=== PATIENT | female | born 1940 | race Caucasian/White ===

== ENCOUNTER → 2018-09-26 | Outpatient (CLI) | payer MEDICARE, OTHER ==
[2018-09-12 07:40] VITALS: BP_SYST 129
[2018-09-19 07:33] VITALS: BP_DIAS 63
[~2018-09-26] MED LIST: ALPR0.25 PO; CALC0.25 PO; CLIN75SO12 PO; ESOM40CA PO; FERR325T14 PO; FURO-68 PO; HYOS0.1279 PO; LOPE1TAB PO; ONDA8TAB12 PO; PRED1TAB3 PO; RANI-376 PO; SODI650T PO; SOLI10TA2 PO; SOTA80TA48 PO; TRIA15CR TP; [UNRECOGNIZED DRUG - CODE] MC; hyomax
--- NOTE | 2018-09-26 11:23 | CARD ---
MR#: [id number] Date of Study: 09/26/2018 Ordering Physician: LAURIE PANDA, Referring Physician: LAURIE PANDA, Tech: Brenda Lopez ATIYA APPROVED REPORT EXAM: Two-dimensional and M-mode echocardiogram with Doppler and color Doppler. Other Information Quality : Good INDICATION Atrial Fibrillation 2D DIMENSIONS RVDd2.4 (2.9-3.5cm)Left Atrium(2D)3.1 (1.6-4.0cm) IVSd0.8 (0.7-1.1cm)Aortic Root(2D)2.6 (2.0-3.7cm) LVDd4.1 (3.9-5.9cm)LVOT Diameter2.0 (1.8-2.4cm) PWd0.7 (0.7-1.1cm)LVDs2.2 (2.5-4.0cm) FS (%) 30.0 %SV57.9 ml LVEF(%)60.0 (>50%) Aortic Valve AoV Peak Jethro.158.9cm/sAoV VTI42.4cm AO Peak GR.10.1mmHgLVOT Peak Jethro.82.5cm/s LVOT VTI 26.28cmAO Mean GR.5mmHg SIMONE (VMAX)1.82rg1RDQ (VTI)1.94cm2 AI P 1/2 Ulam782yq Mitral Valve MV E Lddiaodw873.9cm/sMV DECEL CCBF164nk MV A Jazsucia237.6cm/sMV SIP52ja E/A Ratio0.9MVA (PHT)5.09cm2 TDI E/Lateral E'12.3E/Medial E'19.6 Tricuspid Valve TR P. Koubzret522yc/sRAP IWIBGYOH0isCc TR Peak Gr.27xyQjOTAR87gnJd Pulmonary Vein S1 Uqkyrxjd68.3cm/sD2 Urefokjx89.9cm/s LEFT VENTRICLE The left ventricle is normal size. There is normal left ventricular wall thickness. The left ventricu lar systolic function is normal. The Ejection Fraction is 55-60%. There is normal LV segmental wall m otion. Transmitral Doppler flow pattern is Grade I-abnormal relaxation pattern. RIGHT VENTRICLE The right ventricle is normal size. The right ventricular systolic function is normal. ATRIA The left atrium size is normal. The right atrium size is normal. The interatrial septum is intact wit h no evidence for an atrial septal defect or patent foramen ovale as noted on 2-D or Doppler imaging. AORTIC VALVE The aortic valve is calcified but opens well. Doppler and Color Flow revealed mild aortic regurgitati on. There is no significant aortic valvular stenosis. MITRAL VALVE The mitral valve is calcified but opens well. There is no evidence of mitral valve prolapse. There is no mitral valve stenosis. Doppler and Color-flow revealed mild mitral regurgitation. TRICUSPID VALVE The tricuspid valve is normal in structure and function. Doppler and Color Flow revealed mild tricusp id regurgitation. There is mild pulmonary hypertension. The PA pressure was estimated at 32 mmHg. The re is no tricuspid valve stenosis. PULMONIC VALVE The pulmonic valve is not well visualized. Doppler and Color Flow revealed trace pulmonic valvular re gurgitation. There is no pulmonic valvular stenosis. GREAT VESSELS The aortic root is normal in size. The ascending aorta is not well seen. The IVC is normal in size an d collapses >50% with inspiration. PERICARDIAL EFFUSION There is no evidence of significant pericardial effusion. Critical Notification Critical Value: No <Conclusion> The left ventricular systolic function is normal. The Ejection Fraction is 55-60%. There is normal LV segmental wall motion. Transmitral Doppler flow pattern is Grade I-abnormal relaxation pattern. Mild aortic regurgitation. Mild mitral regurgitation. Mild tricuspid regurgitation. The PA pressure was estimated at 32 mmHg. There is no evidence of significant pericardial effusion. Signed by : Ravi Izaguirre, Electronically Approved : 09/26/2018 11:23:14
== END | disposition home or self-care (01) ==
LOC: ECHO 07:20
PROVIDERS: ATTEND Internal Medicine Cardiovascular Disease
DX: I08.3 Combined rheumatic disorders of mitral, aortic and tricuspid valves (principal); I27.20 Pulmonary hypertension, unspecified; I47.1 Supraventricular tachycardia; I48.91 Unspecified atrial fibrillation
CPT/HCPCS: 93306

== ENCOUNTER → 2018-10-11 | Outpatient (CLI) | payer MEDICARE, OTHER ==
[2018-10-10 07:18] VITALS: BP 133/61
--- NOTE | 2018-10-11 18:26 | CARD ---
MR#: [id number] Date of Study: 10/11/2018 Ordering Physician: LAURIE PANDA, Referring Physician: LAURIE PANDA, Tech: APPROVED REPORT Procedure: Implantable loop recorder Indications: Patient with severe allergies to EKG lead tape and with significant PVCs and PACs with b radycardia. After appropriate informed consent the patient was brought to the office procedure suite and the [facility] t was prepped and draped in usual sterile condition. After local anesthesia over the left parasternal space with approximately 30 mL of 2% lidocaine a sma ll stab incision was made through which the loaded implantable loop recorder in the delivery device w as placed in the subcutaneous compartment. There were no acute competitions. The patient did have an episode of vagal response with severe bradycardia but maintain her blood pressure throughout the cour se. Excellent amplitudes were obtained from the device. Serial number for the implantable loop recorder is [id number], [facility] confirm Rx. The patient's blood pressure and heart rate stabilized. The incision was then dressed with Steri-Stri ps. <Conclusion> 1. Successful implantation of a loop recorder for further evaluation of tachybradycardia issues. Signed by : Laurie Panda, Electronically Approved : 10/11/2018 18:25:36
== END ==
LOC: LINQ 10:05
PROVIDERS: ATTEND Internal Medicine Cardiovascular Disease
DX: Z45.09 Encounter for adjustment and management of other cardiac device (principal); R00.1 Bradycardia, unspecified
CPT/HCPCS: 33285; C1764

== ENCOUNTER 2018-10-31 10:00 | Inpatient (IN) | payer MEDICARE, OTHER ==
[~2018-10-31] VITALS: Ht 157.5 cm; Wt 57.9 kg
[~2018-10-31 10:00] MED LIST changes: +ALPRAZolam 0.25 MG TABLET PO PRN
--- NOTE | 2018-10-31 10:17 | PHYS DOC ---
Past Medical History Past Medical History: Anxiety, Arrhythmia, Cancer, Hypertension, Other Additional Past Medical Histor: HAY FEVER, PANCREATIC CA, DIARRHEA, POLYCYSITIC KIDNEYS Past Surgical History: Appendectomy, Cholecystectomy, Tonsillectomy, Other Additional Past Surgical Histo: ADNOIDS, WIPPLE, PORT TO L CHEST, ENDOLMPHATIC MASTOID SHUNT L EAR Alcohol Use: None Drug Use: None Adult General Chief Complaint Chief Complaint: CHEST PAIN HPI HPI Patient is a 78 year old female presents to the ER with chest pain that started at 2 AM this morning that is midsternal in location but radiates all the way behind her left shoulder. The patient also has been having nausea. She states the pain is intermittent in nature. On assessment the patient was not having any pain and rated her pain as 0 out of 10 in severity. The patient was at an outpatient department receiving fluids due to her kidney disease and they brought her to the ER. Review of Systems Review of Systems Constitutional: Denies fever or chills [] Eyes: Denies change in visual acuity, redness, or eye pain [] HENT: Denies nasal congestion or sore throat [] Respiratory: Denies cough or shortness of breath [] Cardiovascular: Reports midsternal chest pain that radiates to the left shoulder. GI: Reports nausea, Denies abdominal pain, vomiting, bloody stools or diarrhea [] : Denies dysuria or hematuria [] Musculoskeletal: Denies back pain or joint pain [] Integument: Denies rash or skin lesions [] Neurologic: Denies headache, focal weakness or sensory changes [] Endocrine: Denies polyuria or polydipsia [] Complete systems were reviewed and found to be within normal limits, except as documented in this note. Current Medications Current Medications Current Medications Medications (Trade) Dose Ordered Sig/Pepe Start Time Stop Time Status Last Admin Dose Admin Acetaminophen (Tylenol) 650 mg PRN Q4HRS PRN 10/31/18 13:00 11/01/18 12:59 Morphine Sulfate (Morphine Sulfate) 2 mg PRN Q2HR PRN 10/31/18 13:00 11/01/18 12:59 Ondansetron HCl (Zofran) 4 mg PRN Q8HRS PRN 10/31/18 13:00 11/01/18 12:59 Allergies Allergies Allergies Coded Allergies Type Severity Reaction Last Updated Verified amiodarone Allergy Severe SOA, nausea, headache tremors,weakness 10/31/18 Yes amoxicillin Allergy Severe Hives 10/31/18 Yes benzocaine Allergy Severe Shortness of Air 10/31/18 Yes adhesive Allergy Intermediate Rash 10/31/18 Yes hydromorphone Allergy Intermediate Rash 10/31/18 Yes Propafenone HCl Adverse Reaction Intermediate nausea, irregular heartbeat 10/31/18 Yes azithromycin Adverse Reaction Intermediate 10/31/18 Yes codeine Adverse Reaction Intermediate Nausea and Vomiting 10/31/18 Yes nitroglycerin Adverse Reaction Intermediate Nausea and Vomiting 10/31/18 Yes Physical Exam Physical Exam Constitutional: Well developed, well nourished, no acute distress, non-toxic appearance. [] HENT: Normocephalic, atraumatic, bilateral external ears normal, oropharynx moist, no oral exudates, nose normal. [] Eyes: PERRLA, EOMI, conjunctiva normal, no discharge. [] Neck: Normal range of motion, no tenderness, supple, no stridor. [] Cardiovascular:Heart rate regular rhythm, no murmur [] Lungs & Thorax: Bilateral breath sounds clear to auscultation [] Abdomen: Bowel sounds normal, soft, no tenderness, no masses, no pulsatile masses. [] Skin: Warm, dry, no erythema, no rash. [] Back: No tenderness, no CVA tenderness. [] Extremities: No tenderness, no cyanosis, no clubbing, ROM intact, no edema. [] Neurologic: Alert and oriented X 3, normal motor function, normal sensory fu nction, no focal deficits noted. [] Psychologic: Affect normal, judgement normal, mood normal. [] Current Patient Data Vital Signs Vital Signs Date Time Temp Pulse Resp B/P (MAP) Pulse Ox O2 Delivery O2 Flow Rate FiO2 10/31/18 11:37 52 18 182/79 (113) 99 Room Air 10/31/18 10:06 98.4 98.4 Lab Values Laboratory Tests Test 10/31/18 10:34 White Blood Count 3.9 x10^3/uL (4.0-11.0) L Red Blood Count 3.61 x10^6/uL (3.50-5.40) Hemoglobin 12.1 g/dL (12.0-15.5) Hematocrit 36.2 % (36.0-47.0) Mean Corpuscular Volume 100 fL (79-100) Mean Corpuscular Hemoglobin 33 pg (25-35) Mean Corpuscular Hemoglobin Concent 33 g/dL (31-37) Red Cell Distribution Width 13.6 % (11.5-14.5) Platelet Count 121 x10^3/uL (140-400) L Neutrophils (%) (Auto) 56 % (31-73) Lymphocytes (%) (Auto) 33 % (24-48) Monocytes (%) (Auto) 6 % (0-9) Eosinophils (%) (Auto) 4 % (0-3) H Basophils (%) (Auto) 1 % (0-3) Neutrophils # (Auto) 2.2 x10^3/uL (1.8-7.7) Lymphocytes # (Auto) 1.3 x10^3/uL (1.0-4.8) Monocytes # (Auto) 0.2 x10^3/uL (0.0-1.1) Eosinophils # (Auto) 0.2 x10^3/uL (0.0-0.7) Basophils # (Auto) 0.0 x10^3/uL (0.0-0.2) Sodium Level 142 mmol/L (136-145) Potassium Level 4.4 mmol/L (3.5-5.1) Chloride Level 111 mmol/L (98-107) H Carbon Dioxide Level 25 mmol/L (21-32) Anion Gap 6 (6-14) Blood Urea Nitrogen 14 mg/dL (7-20) Creatinine 0.9 mg/dL (0.6-1.0) Estimated GFR (Cockcroft-Gault) 60.9 BUN/Creatinine Ratio 16 (6-20) Glucose Level 101 mg/dL (70-99) H Calcium Level 8.3 mg/dL (8.5-10.1) L Total Bilirubin 0.4 mg/dL (0.2-1.0) Aspartate Amino Transferase (AST) 103 U/L (15-37) H Alanine Aminotransferase (ALT) 131 U/L (14-59) H Alkaline Phosphatase 128 U/L (46-116) H Troponin I Quantitative < 0.017 ng/mL (0.000-0.055) Total Protein 5.3 g/dL (6.4-8.2) L Albumin 2.8 g/dL (3.4-5.0) L Albumin/Globulin Ratio 1.1 (1.0-1.7) Laboratory Tests 10/31/18 10:34 Laboratory Tests 10/31/18 10:34 EKG EKG EKG interpreted by Dr. Gaines Sinus bradycardia, No STEMI, has ekg changes compared to the last EKG in 2016 of T-wave inversion in the lateral leads. Radiology/Procedures Radiology/Procedures [][facility] [address] [place] [address] IMAGING REPORT Signed PATIENT: AMALIA CANALES VACCOUNT: [id number] : 1940 LOCATION: ER AGE: 78 SEX: F EXAM STATUS: REG ER ORD. PHYSICIAN: LEONCIO HIGHTOWER APRN REASON: chest pain PROCEDURE: CHEST PA & LATERAL Study: CHEST PA LATERAL Indication: Chest pain. Comparison: 11/26/2015 Findings: Left chest wall Port-A-Cath with the tip seen in the expected location of the superior vena cava. Unchanged configuration of the cardiomediastinal silhouette and hilar structures. No lobar infiltrate or pneumothorax. Small bilateral pleural effusions. Aortic arch vessel calcifications. Right upper quadrant surgical clips. Loop recorder. Impression: Very small bilateral pleural effusions. No lobar infiltrate or pneumothorax. Electronically signed by: MYLA GONZALEZ MD (10/31/2018 11:07 AM) [facility] DICTATED and SIGNED BY: MYLA GONZALEZ MD DATE: 10/31/18 110 Course & Med Decision Making Course & Med Decision Making Pertinent Labs and Imaging studies reviewed. (See chart for details) Will get ekg, labs, and chest x-ray. Labs are unremarkable. However history is concerning with have Dr. Fuller admit. Discussed with Dr. Fuller who will admit to hospital. Dragon Disclaimer Dragon Disclaimer This electronic medical record was generated, in whole or in part, using a voice recognition dictation system. Departure Departure Referrals: HARMEET FULLER MD (PCP) The HEART Score for CP Pts HEART Score for Chest Pain: HEART Score for Chest Pain Response (Comments) Value History Highly Suspicious 2 ECG Nonspecific Repolarizatio 1 Age > 65 2 Risk Factors 1 or 2 Risk Factors 1 Troponin < Normal Limit 0 Total 6 Risk Factors: Risk Factors: DM, Current or recent (<one month) smoker, HTN, HLP, family history of CAD, obesity. Risk Scores: Score 0 - 3: 2.5% MACE over next 6 weeks - Discharge Home Score 4 - 6: 20.3% MACE over next 6 weeks - Admit for Clinical Observation Score 7 - 10: 72.7% MACE over next 6 weeks - Early Invasive Strategies LEONCIO HIGHTOWER APRN Oct 31, 2018 10:17
[2018-10-31 10:54] LABS: CALCIUM 8.3 mg/dL (8.5-10.1); CREATININE 0.9 mg/dL (0.6-1.0); GFR 60.9; POTASSIUM 4.4 mmol/L (3.5-5.1)
[2018-10-31 10:59] LABS: ALBUMIN 2.8 g/dL (3.4-5.0); ALBUMIN/GLOBULIN RATIO 1.1 (1.0-1.7); TOTAL BILIRUBIN 0.4 mg/dL (0.2-1.0); TOTAL PROTEIN 5.3 g/dL (6.4-8.2)
[2018-10-31 11:09] LABS: BASO % 1 % (0-3); EOS # 0.2 x10^3/uL (0.0-0.7); EOS % 4 % (0-3); HEMATOCRIT 36.2 % (36.0-47.0); HEMOGLOBIN 12.1 g/dL (12.0-15.5); LYMPH # 1.3 x10^3/uL (1.0-4.8); LYMPH % 33 % (24-48); MEAN CORPUSCULAR HEMOGLOBIN 33 pg (25-35); MEAN CORPUSCULAR HGB CONC 33 g/dL (31-37); MEAN CORPUSCULAR VOLUME 100 fL (79-100); MONO # 0.2 x10^3/uL (0.0-1.1); MONO % 6 % (0-9); NEUT # 2.2 x10^3/uL (1.8-7.7); NEUT % 56 % (31-73); PLATELET COUNT 121 x10^3/uL (140-400); RED BLOOD COUNT 3.61 x10^6/uL (3.50-5.40); RED CELL DISTRIBUTION WIDTH 13.6 % (11.5-14.5); WHITE BLOOD COUNT 3.9 x10^3/uL (4.0-11.0)
--- NOTE | 2018-10-31 11:10 | RAD ---
Study: CHEST PA LATERAL Indication: Chest pain. Comparison: 11/26/2015 Findings: Left chest wall Port-A-Cath with the tip seen in the expected location of the superior vena cava. Unchanged configuration of the cardiomediastinal silhouette and hilar structures. No lobar infiltrate or pneumothorax. Small bilateral pleural effusions. Aortic arch vessel calcifications. Right upper quadrant surgical clips. Loop recorder. Impression: Very small bilateral pleural effusions. No lobar infiltrate or pneumothorax. Electronically signed by: MYLA GONZALEZ MD (10/31/2018 11:07 AM) [facility]
[2018-10-31] MEDS ORDERED: ACETAMINOPHEN 325 MG TABLET. PO PRN (13:00)
[2018-10-31] MEDS ORDERED: ONDANSETRON PF 4 MG/2 ML VIAL. IV PRN (13:00)
--- NOTE | 2018-10-31 14:17 | EKG ---
[facility] [address] [place] [address] Test Date: 2018-10-31 Test Time: 10:13:55 Pat Name: AMALIA CANALES Department: Room: ED HOLD 21 Gender: F [place] Shearer Operator: : 1940 Requested By: LEONCIO HIGHTOWER Order Number: [id number] Reading MD: Shahab Daniel Measurements Intervals [place] Rate: 47 P: CT: QRS: -27 QRSD: 72 T: 149 QT: 516 QTc: 460 Interpretive Statements SINUS RHYTHM NONSPECIFIC ST-T WAVE CHANGES. Electronically Signed On 11-04-2018 9:55:22 CDT by Shahab Daniel
[2018-10-31 16:00] VITALS: BP 182/79
[2018-10-31] MEDS ORDERED: AMLO2.5T2 PO (16:14)
--- NOTE | 2018-10-31 16:25 | NUR ---
The patient, AMALIA CANALES V, 78 y/o, F admitted by HARMEET FULLER MD, was given written information regarding hospital policies, unit procedures and contact persons. Valuables were checked.
[2018-10-31] MEDS ORDERED: LOPERAMIDE 2 MG CAPSULE PO PRN (18:45)
[2018-10-31] MEDS ORDERED: MORPHINE SULFATE MC SCH (18:45)
[2018-10-31] MEDS: MORPHINE SULFATE 2 MG/ML VIAL. IV PRN ×2 (19:15→23:18)
[2018-10-31 19:50] VITALS: BP 163/71
[2018-10-31] MEDS: SOTALOL 80 MG TABLET. PO SCH (20:48)
[2018-10-31] MEDS: FERROUS SULFATE 325 MG TABLET. PO SCH (20:48)
[2018-10-31] MEDS: SODIUM BICARBONATE 650 MG TABLET. PO SCH (20:48)
[2018-10-31] MEDS ORDERED: FAMOTIDINE 20 MG TABLET. PO PRN (21:00)
[2018-10-31 22:55] VITALS: BP 138/65
[2018-10-31 23:08] LABS: BILIRUBIN,URINE NEGATIVE (NEG); CLARITY,URINE CLEAR; NITRITE,URINE NEGATIVE (NEG); PH,URINE 5.5; PROTEIN,URINE NEGATIVE (NEG-TRACE); UROBILINOGEN,URINE 0.2 mg/dL (0.2 mg/dL)
[2018-10-31 23:20] LABS: BACTERIA,URINE FEW /HPF (0-FEW); COLOR,URINE STRAW; RBC,URINE 0 /HPF (0-2); SQUAMOUS EPITHELIAL CELL,UR FEW /LPF; WBC,URINE OCC /HPF (0-4)
[2018-11-01 03:20] VITALS: BP 127/64
[2018-11-01 06:24] LABS: BASO % 1 % (0-3); EOS # 0.2 x10^3/uL (0.0-0.7); EOS % 5 % (0-3); HEMATOCRIT 32.3 % (36.0-47.0); HEMOGLOBIN 10.9 g/dL (12.0-15.5); LYMPH # 1.7 x10^3/uL (1.0-4.8); LYMPH % 46 % (24-48); MEAN CORPUSCULAR HEMOGLOBIN 33 pg (25-35); MEAN CORPUSCULAR HGB CONC 34 g/dL (31-37); MEAN CORPUSCULAR VOLUME 99 fL (79-100); MONO # 0.3 x10^3/uL (0.0-1.1); MONO % 9 % (0-9); NEUT # 1.4 x10^3/uL (1.8-7.7); NEUT % 39 % (31-73); PLATELET COUNT 103 x10^3/uL (140-400); RED BLOOD COUNT 3.25 x10^6/uL (3.50-5.40); RED CELL DISTRIBUTION WIDTH 13.5 % (11.5-14.5); WHITE BLOOD COUNT 3.6 x10^3/uL (4.0-11.0)
[2018-11-01 06:39] LABS: ALBUMIN 2.5 g/dL (3.4-5.0); ALBUMIN/GLOBULIN RATIO 1.1 (1.0-1.7); CALCIUM 7.9 mg/dL (8.5-10.1); CREATININE 0.9 mg/dL (0.6-1.0); GFR 60.9; TOTAL BILIRUBIN 0.4 mg/dL (0.2-1.0); TOTAL PROTEIN 4.7 g/dL (6.4-8.2)
[2018-11-01 07:00] VITALS: BP 138/64
--- NOTE | 2018-11-01 08:50 | PDOC ---
Provider Note Provider Note [id number] HARMEET FULLER MD Nov 01, 2018 08:50
--- NOTE | 2018-11-01 08:59 | HP ---
ADMIT DATE: 10/31/2018 CHIEF COMPLAINT: Chest pain. HISTORY OF PRESENT ILLNESS: A 78-year-old white female who had an arrhythmia monitor implanted in her left upper chest a week ago, has had pain since that time in that area ER chest x-ray, labs all okay and she feels the pain is related to this and has not had ischemic attack symptoms. PAST MEDICAL HISTORY: Well documented in the old records. ALLERGIES: Multiple allergies. SOCIAL HISTORY: , not physically active. FAMILY HISTORY: Unremarkable. REVIEW OF SYSTEMS: No other complaints. OBJECTIVE: ENT: All within normal limits. NECK: No masses, nodes or bruits. LUNGS: Clear. CARDIOVASCULAR: Regular rate. The monitor palpable in the left mid sternal area readily movable, it is not red or swollen. It is tender over the costal cartilages. ABDOMEN: Benign. EXTREMITIES: Unremarkable. NEUROLOGIC: Physiologic. ASSESSMENT: Chest pain. She feels this is likely related to recent implantable event recorder. May be a nerve root irritation or possibly costochondritis, no sign of secondary infection. PLAN: As ordered. HARMEET FULLER MD DR: AUTUMN/naveed JOB#: [id number] / [id number]
[2018-11-01] MEDS: SOTALOL 80 MG TABLET. PO SCH ×2 (09:00→22:12)
[2018-11-01 11:00] VITALS: BP 146/67
--- NOTE | 2018-11-01 11:09 | PDOC2 ---
GEOFFREY HAINES BENEDICTO 11/01/18 1109: CARDIAC CONSULT DATE OF CONSULT Date of Consult DATE: 11/01/18 TIME: 11:05 REASON FOR CONSULT Reason for Consult: Chest pain REFERRING PHYSICIAN Referring Physician: Quique Talavera APRN SOURCE Source: Chart review, Patient HISTORY OF PRESENT ILLNESS HISTORY OF PRESENT ILLNESS This is a 78 yo female, with a history of palpitations and PAT s/p loop recorder 10/11/18 for monitoring, who presented secondary to chest pain that began around 2am yesterday morning. Patient reports experiencing intermittent chest pain and daily VIVAS since loop recorder implant. States she has been experiencing intermittent central chest pain that she describes at dull since implant. Around 2 am yesterday morning, awoke with stabbing pain in her central chest. Pain last for seconds to a minute and resolved without intervention. Radiates up to her neck and to her right shoulder. No associated dizziness, diaphoresis, palpitation, SOA, or nausea/vomiting. No precipitating factors. Pain continues to be intermittent. Does have a history of pancreatic CA s/p chemo and radiation. Underwent whipple procedure in 2006. Gets weekly IV hydration. Does report "spot" on the right upper lung that is being monitored PAST MEDICAL HISTORY Cardiovascular: HTN, Other (PAT) GI: Other (esophagitis ) Heme/Onc: Anemia NOS, Cancer (pancreatic CA ) Hepatobiliary: Other Psych: Anxiety, Depression Musculoskeletal: Osteoarthritis Renal/: Chronic renal insuff PAST SURGICAL HISTORY Past Surgical History: Other (Whipple, loop recorder implant ) FAMILY HISTORY Family History: Hypertension SOCIAL HISTORY Smoke: No ALCOHOL: none Drugs: None CURRENT MEDICATIONS CURRENT MEDICATIONS Current Medications Medications (Trade) Dose Ordered Sig/Pepe Route PRN Reason Start Time Stop Time Status Last Admin Dose Admin Morphine Sulfate (Morphine Sulfate) 2 mg PRN Q2HR PRN IV PAIN 10/31/18 13:00 11/01/18 12:59 10/31/18 23:18 Acetaminophen (Tylenol) 650 mg PRN Q4HRS PRN PO FEVER 10/31/18 13:00 11/01/18 12:59 11/01/18 06:16 Ferrous Sulfate (Feosol) 325 mg BID PO 10/31/18 21:00 10/31/18 20:48 Sodium Bicarbonate (Sodium Bicarbonate) 650 mg BID PO 10/31/18 21:00 10/31/18 20:48 Sotalol HCl (Betapace) 80 mg BID PO 10/31/18 21:00 10/31/18 20:48 ALLERGIES ALLERGIES: Coded Allergies: amiodarone (Verified Allergy, Severe, SOA, nausea, headache franco mors,weakness, 10/31/18) amoxicillin (Verified Allergy, Severe, Hives, 10/31/18) benzocaine (Verified Allergy, Severe, Shortness of Air, 10/31/18) adhesive (Verified Allergy, Intermediate, Rash, 10/31/18) hydromorphone (Verified Allergy, Intermediate, Rash, 10/31/18) Propafenone HCl (Verified Adverse Reaction, Intermediate, nausea, irregular heartbeat, 10/31/18) azithromycin (Verified Adverse Reaction, Intermediate, 10/31/18) IRREGULAR HEART RYTHM codeine (Verified Adverse Reaction, Intermediate, Nausea and Vomiting, 10/31/18) nitroglycerin (Verified Adverse Reaction, Intermediate, Nausea and Vomiting, 10/31/18) ROS Review of System 14 point ROS conducted with pertinent positives noted above in HPI. PHYSICAL EXAM General: Alert, Oriented X3, Cooperative, No acute distress HEENT: Atraumatic Lungs: Clear to auscultation, Normal air movement, Other (central chest tenderness ) Heart: Normal S1, Normal S2, Other (SB- lowest 42. No pauses ) Abdomen: Soft Extremities: No edema, Normal pulses Skin: No breakdown, No significant lesion Neuro: Normal speech, Sensation intact Psych/Mental Status: Mental status NL, Mood NL MUSCULOSKELETAL: Osteoarthritic changes both hands VITALS/I&O VITALS/I&O: Vital Signs Date Time Temp Pulse Resp B/P (MAP) Pulse Ox O2 Delivery O2 Flow Rate FiO2 11/01/18 07:00 97.5 64 16 138/64 (88) 97 Room Air 97.5 I & O 10/31/18 10/31/18 11/01/18 14:59 22:59 06:59 Intake Total 180 ml 500 ml Output Total 300 ml 600 ml Balance -120 ml -100 ml LABS Lab: Laboratory Tests Test 10/31/18 14:00 10/31/18 18:35 10/31/18 23:00 11/01/18 06:05 Troponin I Quantitative < 0.017 ng/mL (0.000-0.055) 0.017 ng/mL (0.000-0.055) Urine Collection Type Unknown Urine Color Straw Urine Clarity Clear Urine pH 5.5 Urine Specific [place] 1.010 Urine Protein Negative mg/dL (NEG-TRACE) Urine Glucose (UA) Negative mg/dL (NEG) Urine Ketones (Stick) Negative mg/dL (NEG) Urine Blood Negative (NEG) Urine Nitrite Negative (NEG) Urine Bilirubin Negative (NEG) Urine Urobilinogen Dipstick 0.2 mg/dL (0.2 mg/dL) Urine Leukocyte Esterase Negative (NEG) Urine RBC 0 /HPF (0-2) Urine WBC Occ /HPF (0-4) Urine Squamous Epithelial Cells Few /LPF Urine Bacteria Few /HPF (0-FEW) White Blood Count 3.6 x10^3/uL (4.0-11.0) L Red Blood Count 3.25 x10^6/uL (3.50-5.40) L Hemoglobin 10.9 g/dL (12.0-15.5) L Hematocrit 32.3 % (36.0-47.0) L Mean Corpuscular Volume 99 fL (79-100) Mean Corpuscular Hemoglobin 33 pg (25-35) Mean Corpuscular Hemoglobin Concent 34 g/dL (31-37) Red Cell Distribution Width 13.5 % (11.5-14.5) Platelet Count 103 x10^3/uL (140-400) L Neutrophils (%) (Auto) 39 % (31-73) Lymphocytes (%) (Auto) 46 % (24-48) Monocytes (%) (Auto) 9 % (0-9) Eosinophils (%) (Auto) 5 % (0-3) H Basophils (%) (Auto) 1 % (0-3) Neutrophils # (Auto) 1.4 x10^3/uL (1.8-7.7) L Lymphocytes # (Auto) 1.7 x10^3/uL (1.0-4.8) Monocytes # (Auto) 0.3 x10^3/uL (0.0-1.1) Eosinophils # (Auto) 0.2 x10^3/uL (0.0-0.7) Basophils # (Auto) 0.0 x10^3/uL (0.0-0.2) Sodium Level 143 mmol/L (136-145) Potassium Level 4.0 mmol/L (3.5-5.1) Chloride Level 110 mmol/L (98-107) H Carbon Dioxide Level 26 mmol/L (21-32) Anion Gap 7 (6-14) Blood Urea Nitrogen 12 mg/dL (7-20) Creatinine 0.9 mg/dL (0.6-1.0) Estimated GFR (Cockcroft-Gault) 60.9 BUN/Creatinine Ratio 13 (6-20) Glucose Level 86 mg/dL (70-99) Calcium Level 7.9 mg/dL (8.5-10.1) L Total Bilirubin 0.4 mg/dL (0.2-1.0) Aspartate Amino Transferase (AST) 53 U/L (15-37) H Alanine Aminotransferase (ALT) 97 U/L (14-59) H Alkaline Phosphatase 100 U/L (46-116) Total Protein 4.7 g/dL (6.4-8.2) L Albumin 2.5 g/dL (3.4-5.0) L Albumin/Globulin Ratio 1.1 (1.0-1.7) Laboratory Tests 11/01/18 06:05 Laboratory Tests 11/01/18 06:05 ECHOCARDIOGRAM ECHOCARDIOGRAM <Conclusion> The left ventricular systolic function is normal. The Ejection Fraction is 55-60%. There is normal LV segmental wall motion. Transmitral Doppler flow pattern is Grade I-abnormal relaxation pattern. Mild aortic regurgitation. Mild mitral regurgitation. Mild tricuspid regurgitation. The PA pressure was estimated at 32 mmHg. There is no evidence of significant pericardial effusion. DATE: 09/26/18 112 ASSESSMENT/PLAN ASSESSMENT/PLAN 1. Chest pain, atypical; AMI ruled out. Recent echo with preserved LV systolic function 2. H/o PAT s/p loop recorder. c/o intermittent chest pain and VIVAS since implant. On sotalol for rhythm maintenance. QTc 460 3. Accelerated hypertension; now well controlled 4. Elevated LFTs 5. H/o pancreatic CA s/p chemo, radiation, whipple. 6. CKD; stable 7. Sinus bradycardia; lowest 42. No pauses, dizziness, syncope. Recommendations Chest CTA to r/o PE given symptomatology and risk factors CT head given persistent VIVAS's Device interrogation Supportive care LAURIE PANDA MD 11/01/18 8577: CARDIAC CONSULT ASSESSMENT/PLAN ASSESSMENT/PLAN Pt. seen and examined. Agree with above PUBLIC HEALTH DIRECTOR note. 78 y.o woman with pain over the mid sternum but not over the loop recorder site. No infection She has had constant headache. No obvious CT abn. CTA chest w/o sign findings. Overall, no clear organic cause. She is not interested in neuroanalgesics like gabapentin. No obvious correlation to her headaches and her heart. Would favor conservative mgmt, if no improvement in 2-3 months, I told the patient I can always remove her loop recorder fairly easily. Discussed with her family. She is reassured. Ok to dc from our stand point. thanks Thanks GEOFFREY HAINES APRN Nov 01, 2018 11:09 LAURIE PANDA MD Nov 01, 2018 22:47
--- NOTE | 2018-11-01 11:25 | NUR ---
SS following for discharge planning. SS reviewed pt chart. Pt is from home with spouse and is currently on room air. No discharge needs noted at this time. SS will continue to follow for discharge planning.
[2018-11-01 11:37] LABS: CHOLESTEROL/HDL RATIO 1.9
[2018-11-01] MEDS ORDERED: IV 1/2 NORMAL SALINE 1,000 ML IV ONE (13:15)
[2018-11-01] MEDS: ONDANSETRON ODT 4 MG TAB.RAPDIS. PO PRN (13:26)
[2018-11-01] MEDS: IV 1/2 NORMAL SALINE 1,000 ML IV SCH (13:30)
[2018-11-01] MEDS ORDERED: CONTRAST GIVEN. MC PRN (14:00)
[2018-11-01] MEDS ORDERED: IOHEXOL 350 MG/ML 100 ML VIAL. IV ONE (14:00)
--- NOTE | 2018-11-01 14:16 | RAD ---
CT of the head Axial CT images of the head were obtained without IV contrast. Exposure: One or more of the following individualized dose reduction techniques were utilized for this examination: 1. Automated exposure control 2. Adjustment of the mA and/or kV according to patient size 3. Use of iterative reconstruction technique Comparison: None. Indication: Headache for 3 weeks Findings: No mass, mass effect or hemorrhage is seen. The ventricles and cortical sulci are mildly enlarged. There are diffuse periventricular white matter hypodensities. The basilar cisterns are unremarkable. No midline shift is noted. There is no intra or extra axial fluid collection. There is diffuse calcification of the bilateral internal carotid arteries and vertebral arteries. No bony or soft tissue abnormality is seen. The visualized paranasal sinuses are clear. Impression: 1. No acute mass, mass effect or hemorrhage. 2. Periventricular white matter ischemic change. Age appropriate brain atrophy. 3. Diffuse mild atherosclerotic disease of the intracranial vessels. Electronically signed by: Duke Blair MD (11/01/2018 2:13 PM) [facility]
--- NOTE | 2018-11-01 14:43 | RAD ---
PQRS Compliance statement: One or more of the following individualized dose reduction techniques were utilized for this examination: 1. Automated exposure control. 2. Adjustment of the mA and/or kV according to patient size. 3. Use of iterative reconstruction technique. Indication:Chest pain. Rule out PE. TECHNIQUE: CT angiogram of the chest with IV contrast with multiplanar MIP reformats. COMPARISON: Previous CT chest from 01/13/2013 FINDINGS: Diagnostic quality PE study. There are no central, segmental or subsegmental filling defects in the pulmonary arteries. Heart is normal in size. No pericardial effusion. Trace bilateral pleural effusions. Left chest wall Chemo-Port is seen with its tip in the SVC. Complex right thyroid nodule is seen. No enlarged axillary, mediastinal or hilar adenopathy. Bibasilar mild subsegmental atelectasis. 3 mm nodule in the right lower lobe (series 3 image 77), stable. Visualized sections through the liver, spleen, pancreas, adrenals within normal limits. Multiple low attenuating lesions are seen in the visualized left kidney also seen on previous exam most likely cysts. No suspicious bony lesion. IMPRESSION: 1. No PE. 2. No pneumonia or imaging evidence of acute pulmonary infarct. 3. Trace bilateral pleural effusions, nonspecific. 4. Right Lobe nodule. Nonemergent ultrasound recommended. Electronically signed by: Romie Campos DO (11/01/2018 2:40 PM) [facility]
[2018-11-01 15:00] VITALS: BP 146/67
[2018-11-01] MEDS: FERROUS SULFATE 325 MG TABLET. PO SCH ×2 (15:43→22:11)
[2018-11-01] MEDS: SODIUM BICARBONATE 650 MG TABLET. PO SCH ×2 (15:43→22:11)
[2018-11-01] MEDS: amLODIPine BESYLATE 5 MG TABLET PO SCH (15:43)
[2018-11-01] MEDS: CALCITRIOL 0.25 MCG CAPSULE. PO SCH (15:43)
[2018-11-01 19:40] VITALS: BP 132/62
[2018-11-01 22:45] VITALS: BP 143/65
[2018-11-02] MEDS: ONDANSETRON ODT 4 MG TAB.RAPDIS. PO PRN (01:24)
[2018-11-02 03:19] VITALS: BP 124/88
[2018-11-02] MEDS: IV 1/2 NORMAL SALINE 1,000 ML IV SCH (03:36)
[2018-11-02 07:00] VITALS: BP 142/65
--- NOTE | 2018-11-02 08:18 | PDOC ---
Provider Note Provider Note [id number] HARMEET FULLER MD Nov 02, 2018 08:18
[2018-11-02 08:26] VITALS: BP 142/65
[2018-11-02] MEDS: CALCITRIOL 0.25 MCG CAPSULE. PO SCH (08:26)
[2018-11-02] MEDS: FERROUS SULFATE 325 MG TABLET. PO SCH (08:26)
[2018-11-02] MEDS: SODIUM BICARBONATE 650 MG TABLET. PO SCH (08:26)
[2018-11-02] MEDS: SOTALOL 80 MG TABLET. PO SCH (08:26)
[2018-11-02] MEDS: amLODIPine BESYLATE 5 MG TABLET PO SCH (08:27)
[2018-11-02] MEDS ORDERED: HEPARIN PF 500 UNIT/5 ML DISP.SYRIN. IV ONE (08:30)
--- NOTE | 2018-11-02 09:00 | NUR ---
Discharge instructions reviewed with patient, patient verbalizes understanding, Port flushed with heparin flush and discontinued, no complications.
--- NOTE | 2018-11-02 17:42 | DS ---
DATE OF DISCHARGE: 11/02/2018 HOSPITAL SUMMARY: A 78-year-old white female had a recent event recorder placed subcutaneously in left anterior chest and area has been hurting with sharp pain on and off since that time. CT scan of the chest and head was unremarkable as was the chest x-ray and all laboratory is unremarkable including cardiac markers. Monitor has been normal and she is still mildly tender in that area, but comfortable that this is a chest wall problem and not cardiac and be followed as an outpatient. FINAL DIAGNOSES: 1. Chest wall pain. 2. Pancytopenia secondary to prior medications. OPERATIONS, PROCEDURE, COMPLICATIONS: None. CONSULTATIONS: Dr. Izaguirre and Dr. James. DISPOSITION: Continue all meds the same without change. Follow up with hoop maker helper machine for the event recorder as needed and I will see her on an as needed basis as well. PROGNOSIS: Guarded. HARMEET FULLER MD DR: AUTUMN/nts JOB#: [id number] / [id number]
== END 2018-11-02 09:30 | disposition home or self-care (01) | DRG 313 ==
LOC: ER 10:00 → ED HOLD 12:52 → 2 SOUTH 15:56
PROVIDERS: ADMIT Family Medicine; ATTEND Family Medicine
DX: R07.89 Other chest pain (principal); D61.818 Other pancytopenia; I12.9 Hypertensive chronic kidney disease with stage 1 through stage 4 chronic kidney disease, or unspecified chronic kidney disease; Z82.49 Family history of ischemic heart disease and other diseases of the circulatory system; Z85.07 Personal history of malignant neoplasm of pancreas; Z90.411 Acquired partial absence of pancreas; Z90.49 Acquired absence of other specified parts of digestive tract; Z92.21 Personal history of antineoplastic chemotherapy; Z92.3 Personal history of irradiation; F32.9 Major depressive disorder, single episode, unspecified; F41.9 Anxiety disorder, unspecified; M19.90 Unspecified osteoarthritis, unspecified site
CPT/HCPCS: 36415; 70450; 71046; 71275; 80053; 80061; 81001; 84484; 85025; 93005; J2270; Q0162; Q9967; G0378

== ENCOUNTER 2018-12-13 17:17 | Emergency (ER) | payer MEDICARE ==
[~2018-12-13] VITALS: Ht 157.5 cm; Wt 54.9 kg
[~2018-12-13 17:17] MED LIST changes: -ALPRAZolam 0.25 MG TABLET PO PRN; +AMLO2.5T2 PO; +AMLO5TAB10 PO; +AMLO5TAB4 PO
--- NOTE | 2018-12-13 17:42 | PHYS DOC ---
Past Medical History Past Medical History: Anxiety, Arrhythmia, Cancer, Hypertension, Other Additional Past Medical Histor: HAY FEVER, PANCREATIC CA, DIARRHEA, POLYCYSITIC KIDNEYS (LEONCIO HIGHTOWER APRN) Past Surgical History: Appendectomy, Cholecystectomy, Tonsillectomy, Other Additional Past Surgical Histo: ADNOIDS, WIPPLE, PORT TO L CHEST, ENDOLMPHATIC MASTOID SHUNT L EAR (LEONCIO HIGHTOWER APRN) Alcohol Use: None Drug Use: None (LEONCIO HIGHTOWER APRN) Adult General Chief Complaint Chief Complaint: ABNORMAL LABS HPI HPI Patient is a 78 year old female who presents for abnormal lab values. The patient was seen by her oncologist at [facility] and had labs drawn this morning at 9:50 AM and told that her potassium was 6.2. Denies any pain or any symptoms at this time. (LEONCIO HIGHTOWER APRN) Review of Systems Review of Systems Constitutional: Denies fever or chills [] Eyes: Denies change in visual acuity, redness, or eye pain [] HENT: Denies nasal congestion or sore throat [] Respiratory: Denies cough or shortness of breath [] Cardiovascular: No additional information not addressed in HPI [] GI: Denies abdominal pain, nausea, vomiting, bloody stools or diarrhea [] : Denies dysuria or hematuria [] Musculoskeletal: Denies back pain or joint pain [] Integument: Denies rash or skin lesions [] Neurologic: Denies headache, focal weakness or sensory changes [] Endocrine: Denies polyuria or polydipsia [] Complete systems were reviewed and found to be within normal limits, except as documented in this note. (LEONCIO HIGHTOWER APRN) Current Medications Current Medications Current Medications Medications (Trade) Dose Ordered Sig/Pepe Start Time Stop Time Status Last Admin Dose Admin Heparin Sodium (Porcine) (Hep Lock Adult) 500 unit STK-MED ONCE 12/13/18 19:30 12/13/18 19:30 DC Ondansetron HCl (Zofran) 4 mg 1X ONCE 12/13/18 17:45 12/13/18 17:46 DC 12/13/18 18:40 4 MG Sodium Chloride (NORMAL SALINE FLUSH for STERILE FIELD) 10 ml STK-MED ONCE 12/13/18 18:14 12/13/18 18:14 DC (ADA CHANEY MD) Allergies Allergies Allergies Coded Allergies Type Severity Reaction Last Updated Verified amiodarone Allergy Severe SOA, nausea, headache tremors,weakness 12/12/18 Yes amoxicillin Allergy Severe Hives 12/12/18 Yes benzocaine Allergy Severe Shortness of Air 12/12/18 Yes adhesive Allergy Intermediate Rash 12/12/18 Yes hydromorphone Allergy Intermediate Rash 12/12/18 Yes Propafenone HCl Adverse Reaction Intermediate nausea, irregular heartbeat 12/12/18 Yes azithromycin Adverse Reaction Intermediate 12/12/18 Yes codeine Adverse Reaction Intermediate Nausea and Vomiting 12/12/18 Yes nitroglycerin Adverse Reaction Intermediate Nausea and Vomiting 12/12/18 Yes (ADA CHANEY MD) Physical Exam Physical Exam Constitutional: Well developed, well nourished, no acute distress, non-toxic appearance. [] HENT: Normocephalic, atraumatic, bilateral external ears normal, oropharynx moist, no oral exudates, nose normal. [] Eyes: PERRLA, EOMI, conjunctiva normal, no discharge. [] Neck: Normal range of motion, no tenderness, supple, no stridor. [] Cardiovascular:Heart rate regular rhythm, no murmur [] Lungs & Thorax: Bilateral breath sounds clear to auscultation [] Abdomen: Bowel sounds normal, soft, no tenderness, no masses, no pulsatile masses. [] Skin: Warm, dry, no erythema, no rash. [] Back: No tenderness, no CVA tenderness. [] Extremities: No tenderness, no cyanosis, no clubbing, ROM intact, no edema. [] Neurologic: Alert and oriented X 3, normal motor function, normal sensory function, no focal deficits noted. [] Psychologic: Affect normal, judgement normal, mood normal. [] (LEONCIO HIGHTOWER APRN) Current Patient Data Vital Signs Vital Signs Date Time Temp Pulse Resp B/P (MAP) Pulse Ox O2 Delivery O2 Flow Rate FiO2 12/13/18 18:36 97 18 130/59 (82) 97 Room Air 12/13/18 17:31 98.4 98.4 (ADA CHANEY MD) Lab Values Laboratory Tests Test 12/13/18 18:25 White Blood Count 3.9 x10^3/uL (4.0-11.0) L Red Blood Count 3.30 x10^6/uL (3.50-5.40) L Hemoglobin 11.1 g/dL (12.0-15.5) L Hematocrit 32.8 % (36.0-47.0) L Mean Corpuscular Volume 99 fL (79-100) Mean Corpuscular Hemoglobin 34 pg (25-35) Mean Corpuscular Hemoglobin Concent 34 g/dL (31-37) Red Cell Distribution Width 12.9 % (11.5-14.5) Platelet Count 114 x10^3/uL (140-400) L Neutrophils (%) (Auto) 46 % (31-73) Lymphocytes (%) (Auto) 36 % (24-48) Monocytes (%) (Auto) 9 % (0-9) Eosinophils (%) (Auto) 9 % (0-3) H Basophils (%) (Auto) 1 % (0-3) Neutrophils # (Auto) 1.8 x10^3/uL (1.8-7.7) Lymphocytes # (Auto) 1.4 x10^3/uL (1.0-4.8) Monocytes # (Auto) 0.3 x10^3/uL (0.0-1.1) Eosinophils # (Auto) 0.3 x10^3/uL (0.0-0.7) Basophils # (Auto) 0.0 x10^3/uL (0.0-0.2) Sodium Level 143 mmol/L (136-145) Potassium Level 4.8 mmol/L (3.5-5.1) Chloride Level 110 mmol/L (98-107) H Carbon Dioxide Level 25 mmol/L (21-32) Anion Gap 8 (6-14) Blood Urea Nitrogen 20 mg/dL (7-20) Creatinine 1.0 mg/dL (0.6-1.0) Estimated GFR (Cockcroft-Gault) 53.9 BUN/Creatinine Ratio 20 (6-20) Glucose Level 88 mg/dL (70-99) Calcium Level 8.4 mg/dL (8.5-10.1) L Total Bilirubin 0.3 mg/dL (0.2-1.0) Aspartate Amino Transferase (AST) 98 U/L (15-37) H Alanine Aminotransferase (ALT) 155 U/L (14-59) H Alkaline Phosphatase 99 U/L (46-116) DJ-Yug-U-Type Natriuretic Peptide 995 pg/mL (0-449) H Total Protein 5.4 g/dL (6.4-8.2) L Albumin 2.9 g/dL (3.4-5.0) L Albumin/Globulin Ratio 1.2 (1.0-1.7) Laboratory Tests 12/13/18 18:25 Laboratory Tests 12/13/18 18:25 (ADA CHANEY MD) Lab Values Laboratory Tests Test 12/13/18 18:25 White Blood Count 3.9 x10^3/uL (4.0-11.0) L Red Blood Count 3.30 x10^6/uL (3.50-5.40) L Hemoglobin 11.1 g/dL (12.0-15.5) L Hematocrit 32.8 % (36.0-47.0) L Mean Corpuscular Volume 99 fL (79-100) Mean Corpuscular Hemoglobin 34 pg (25-35) Mean Corpuscular Hemoglobin Concent 34 g/dL (31-37) Red Cell Distribution Width 12.9 % (11.5-14.5) Platelet Count 114 x10^3/uL (140-400) L Neutrophils (%) (Auto) 46 % (31-73) Lymphocytes (%) (Auto) 36 % (24-48) Monocytes (%) (Auto) 9 % (0-9) Eosinophils (%) (Auto) 9 % (0-3) H Basophils (%) (Auto) 1 % (0-3) Neutrophils # (Auto) 1.8 x10^3/uL (1.8-7.7) Lymphocytes # (Auto) 1.4 x10^3/uL (1.0-4.8) Monocytes # (Auto) 0.3 x10^3/uL (0.0-1.1) Eosinophils # (Auto) 0.3 x10^3/uL (0.0-0.7) Basophils # (Auto) 0.0 x10^3/uL (0.0-0.2) Sodium Level 143 mmol/L (136-145) Potassium Level 4.8 mmol/L (3.5-5.1) Chloride Level 110 mmol/L (98-107) H Carbon Dioxide Level 25 mmol/L (21-32) Anion Gap 8 (6-14) Blood Urea Nitrogen 20 mg/dL (7-20) Creatinine 1.0 mg/dL (0.6-1.0) Estimated GFR (Cockcroft-Gault) 53.9 BUN/Creatinine Ratio 20 (6-20) Glucose Level 88 mg/dL (70-99) Calcium Level 8.4 mg/dL (8.5-10.1) L Total Bilirubin Pending Aspartate Amino Transferase (AST) Pending Alanine Aminotransferase (ALT) Pending Alkaline Phosphatase Pending Total Protein Pending Albumin Pending Albumin/Globulin Ratio Pending Laboratory Tests 12/13/18 18:25 Laboratory Tests 12/13/18 18:25 (LEONCIO HIGHTOWER APRN) EKG EKG EKG interpreted by Dr. Chaney Sinus rober with rate of 50, No STEMI[] Obtained 2nd EKG while waiting for labs as on the monitor it appeared she was having peaked T waves. EKG shows sinus rober rate of 42. No peaked T waves (interpreted by Dr. Diaz). (LEONCIO HIGHTOWER APRN) Radiology/Procedures Radiology/Procedures [] (LEONCIO HIGHTOWER APRN) Course & Med Decision Making Course & Med Decision Making Pertinent Labs and Imaging studies reviewed. (See chart for details) Reports potassium of 6.2. Will get labs. Labs show potassium of 4.8. Will d/c home. (LEONCIO HIGHTOWER APRN) Course & Med Decision Making I was not involved in the care of this patient after 1800 on 12/13/2018 (ADA CHANEY MD) Dragon Disclaimer Dragon Disclaimer This electronic medical record was generated, in whole or in part, using a voice recognition dictation system. (LEONCIO HIGHTOWER APRN) Departure Departure Impression: Primary Impression: Abnormal laboratory test Disposition: 01 HOME, SELF-CARE Condition: STABLE Referrals: HARMEET FULLER MD (PCP) Additional Instructions: Thank you for visiting [facility]. We appreciate you trusting us with your care. If any additional problems come up don't hesitate to return to visit us. Please follow up with your primary care provider so they can plan additional care if needed and know about the problem that you had. If symptoms worsen come back to the Emergency Department. Any concerning symptoms that start such as chest pain, shortness of air, weakness or numbness on one side of the body, running high fevers or any other concerning symptoms return to the ER. LEONCIO HIGHTOWER APRN Dec 13, 2018 17:42 ADA CHANEY MD Dec 17, 2018 06:24
[2018-12-13] MEDS ORDERED: ONDANSETRON PF 4 MG/2 ML VIAL. IV ONE (17:45)
[2018-12-13] MEDS ORDERED: IV NORMAL SALINE 500ML BAG 500 ML IV ONE (17:45)
[2018-12-13] MEDS ORDERED: 0.9 % SOD CHL for STERILE FIELD 10 ML DISP.SYRIN. ONE (18:14)
[2018-12-13 18:36] VITALS: BP 130/59
[2018-12-13 18:39] LABS: BASO % 1 % (0-3); EOS # 0.3 x10^3/uL (0.0-0.7); EOS % 9 % (0-3); HEMATOCRIT 32.8 % (36.0-47.0); HEMOGLOBIN 11.1 g/dL (12.0-15.5); LYMPH # 1.4 x10^3/uL (1.0-4.8); LYMPH % 36 % (24-48); MEAN CORPUSCULAR HEMOGLOBIN 34 pg (25-35); MEAN CORPUSCULAR HGB CONC 34 g/dL (31-37); MEAN CORPUSCULAR VOLUME 99 fL (79-100); MONO # 0.3 x10^3/uL (0.0-1.1); MONO % 9 % (0-9); NEUT # 1.8 x10^3/uL (1.8-7.7); NEUT % 46 % (31-73); PLATELET COUNT 114 x10^3/uL (140-400); RED CELL DISTRIBUTION WIDTH 12.9 % (11.5-14.5); WHITE BLOOD COUNT 3.9 x10^3/uL (4.0-11.0)
--- NOTE | 2018-12-13 18:47 | EKG ---
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
[2018-12-13 18:56] LABS: CALCIUM 8.4 mg/dL (8.5-10.1); GFR 53.9; POTASSIUM 4.8 mmol/L (3.5-5.1)
[2018-12-13 19:02] LABS: ALBUMIN 2.9 g/dL (3.4-5.0); ALBUMIN/GLOBULIN RATIO 1.2 (1.0-1.7); TOTAL BILIRUBIN 0.3 mg/dL (0.2-1.0); TOTAL PROTEIN 5.4 g/dL (6.4-8.2)
[2018-12-13] MEDS ORDERED: HEPARIN PF 500 UNIT/5 ML DISP.SYRIN. IV ONE (19:30)
--- NOTE | 2018-12-14 07:00 | EKG ---
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
== END 2018-12-13 19:35 | disposition home or self-care (01) ==
LOC: ER 17:17
DX: R79.89 Other specified abnormal findings of blood chemistry (principal); I10 Essential (primary) hypertension; Z90.49 Acquired absence of other specified parts of digestive tract; Z90.89 Acquired absence of other organs; Z88.1 Allergy status to other antibiotic agents; Z88.5 Allergy status to narcotic agent; Z88.8 Allergy status to other drugs, medicaments and biological substances
CPT/HCPCS: 36415; 80053; 83880; 85025; 93005; 96374; 99285; J2405; J7040

== ENCOUNTER → 2021-01-20 | Outpatient (CLI) | payer MEDICARE ==
[2021-01-13 07:33] VITALS: BP 132/58
[~2021-01-20] MED LIST changes: +AMLO-186 PO; -AMLO5TAB10 PO; +LIPA1CAP8 PO; +SUCR1TAB PO
[2021-01-20 08:21] LABS: ALBUMIN 2.9 g/dL (3.4-5.0); ALBUMIN/GLOBULIN RATIO 1.1 (1.0-1.7); GFR 53.6; POTASSIUM 4.5 mmol/L (3.5-5.1); TOTAL BILIRUBIN 0.4 mg/dL (0.2-1.0); TOTAL PROTEIN 5.6 g/dL (6.4-8.2)
[2021-01-20 12:11] LABS: HEMATOCRIT 36.5 % (36.0-47.0); HEMOGLOBIN 11.7 g/dL (12.0-15.5); RED BLOOD COUNT 3.63 x10^6/uL (3.50-5.40); RED CELL DISTRIBUTION WIDTH 13.6 % (11.5-14.5); WHITE BLOOD COUNT 4.8 x10^3/uL (4.0-11.0)
[2021-01-20 12:20] LABS: PROTHROMBIN TIME PATIENT 12.9 SEC (11.7-14.0)
--- NOTE | 2021-01-20 18:25 | CARD ---
MR#: [id number] Date of Study: 01/20/2021 Ordering Physician: LAURIE PANDA, Referring Physician: LAURIE PANDA, Tech: Gina Matias, [facility] APPROVED REPORT EXAM: Two-dimensional and M-mode echocardiogram with Doppler and color Doppler. Other Information Quality : AverageHR: 47bpm INDICATION Paraxymal atrial tachycardia RISK FACTORS Hypertension 2D DIMENSIONS Left Atrium(2D)3.0 (1.6-4.0cm)IVSd1.0 (0.7-1.1cm) Aortic Root(2D)2.9 (2.0-3.7cm)LVDd4.4 (3.9-5.9cm) LVOT Diameter2.1 (1.8-2.4cm)PWd0.9 (0.7-1.1cm) LVDs2.3 (2.5-4.0cm) Aortic Valve AoV Peak Jethro.182.2cm/sAoV VTI48.4cm AO Peak GR.13.3mmHgLVOT Peak Jethro.70.6cm/s LVOT VTI 20.96cmAO Mean GR.7mmHg AI P 1/2 Wwja426nt Mitral Valve MV E Uecflxii43.2cm/sMV DECEL MBMC019vs MV A Mpzmfbbv34.9cm/sMV E Mean Gr.2mmHg MV LGJ84wwA/A Ratio1.0 MVA (PHT)4.42cm2 TDI E/Lateral E'12.2E/Medial E'14.1 Pulmonary Valve PV Peak Qdewdzlc65.0cm/sPV Peak Grad.4mmHg Tricuspid Valve TR P. Zguduxqy425qv/sRAP GBDVJJIF4ysBu TR Peak Gr.37brTcNJVO29dqDx Pulmonary Vein S1 Knqcywil47.9cm/sD2 Xlgktjqr44.3cm/s PVa vhshcvhm504kvbr LEFT VENTRICLE The left ventricle is normal size. There is mild concentric left ventricular hypertrophy. The left ve ntricular systolic function is normal and the ejection fraction is within normal range. The Ejection Fraction is 55-60%. There is normal LV segmental wall motion. Transmitral Doppler flow pattern is Gra de II-pseudonormal filling dynamics. RIGHT VENTRICLE The right ventricle is normal size. There is normal right ventricular wall thickness. The right ventr icular systolic function is normal. ATRIA The left atrium size is normal. The right atrium size is normal. The interatrial septum is intact wit h no evidence for an atrial septal defect or patent foramen ovale as noted on 2-D or Doppler imaging. AORTIC VALVE The aortic valve is normal in structure and function. Doppler and Color Flow revealed trace to mild a ortic regurgitation. There is no significant aortic valvular stenosis. Maximum pressure gradient of 1 6 mmHg and mean pressure gradient of 8 mmHg. MITRAL VALVE The mitral valve is normal in structure and function. There is no evidence of mitral valve prolapse. There is no mitral valve stenosis. Doppler and Color Flow revealed trace to mild mitral valve regurgi tation. TRICUSPID VALVE The tricuspid valve is normal in structure and function. Doppler and Color Flow revealed trace tricus pid regurgitation with an estimated PAP of 36 mmHg. There is no tricuspid valve stenosis. PULMONIC VALVE The pulmonic valve is not well visualized. Doppler and Color Flow revealed trace pulmonic valvular re gurgitation. GREAT VESSELS The aortic root is normal in size. The IVC was not visualized. PERICARDIAL EFFUSION There is a trace pericardial effusion with no hemodynamic significance. Critical Notification Critical Value: No <Conclusion> The left ventricle is normal size. The left ventricular systolic function is normal and the ejection fraction is within normal range. The Ejection Fraction is 55-60%. There is mild concentric left ventricular hypertrophy. Doppler and Color Flow revealed trace to mild aortic regurgitation. There is no significant aortic valvular stenosis. Doppler and Color Flow revealed trace to mild mitral valve regurgitation. Doppler and Color Flow revealed trace tricuspid regurgitation with an estimated PAP of 36 mmHg. Signed by : Shahab Daniel MD Electronically Approved : 01/20/2021 18:25:06
== END ==
LOC: ECHO 07:18
PROVIDERS: ATTEND Internal Medicine Cardiovascular Disease
DX: I08.0 Rheumatic disorders of both mitral and aortic valves (principal); I47.1 Supraventricular tachycardia; N18.9 Chronic kidney disease, unspecified
CPT/HCPCS: 36415; 80053; 85027; 85610; 93306

== ENCOUNTER 2021-01-21 07:21 | Outpatient (CLI) | payer MEDICARE ==
[~2021-01-21] VITALS: Ht 157.5 cm; Wt 55.0 kg
[2021-01-21] MEDS ORDERED: LIDOCAINE 2%/EPI 1:100,000 20 ML VIAL. ONE (07:44)
[2021-01-21] MEDS ORDERED: fentaNYL PF VIAL 100 MCG/2 ML VIAL ONE (08:11)
[2021-01-21] MEDS ORDERED: MIDAZOLAM HCL/PF 2 MG/2 ML VIAL. ONE (08:12)
[2021-01-21 08:16] VITALS: BP 161/69
[2021-01-21] MEDS ORDERED: fentaNYL PF VIAL 100 MCG/2 ML VIAL IV ONE (08:45)
[2021-01-21] MEDS ORDERED: LIDOCAINE 2%/EPI 1:100,000 20 ML VIAL. IJ ONE (08:45)
[2021-01-21] MEDS ORDERED: MIDAZOLAM HCL/PF 2 MG/2 ML VIAL. IV ONE (08:45)
[2021-01-21 09:04] VITALS: BP 118/62
[2021-01-21 09:30] VITALS: BP 144/65
[2021-01-21 09:50] VITALS: BP 152/83
[2021-01-21 10:10] VITALS: BP 102/68
[2021-01-21] MEDS ORDERED: HEPARIN PF 500 UNIT/5 ML DISP.SYRIN. IVP ONE (10:15)
[2021-01-21 10:31] VITALS: BP 105/72
--- NOTE | 2021-01-21 10:33 | NUR ---
Patient's Port de-accessed and packed with Heparin. VS stable. Dressing clean, dry, intact. Pain controlled. Instructions provided on site care, sedation. taking patient home. All belongings, including cell phone and walker, taken with patient at time of d/c.
--- NOTE | 2021-01-21 11:01 | CARD ---
MR#: [id number] Date of Study: 01/21/2021 Ordering Physician: LAURIE PANDA, Referring Physician: LAURIE PANDA, Tech: APPROVED REPORT EXAM MODERATE SEDATION TIME: 30 minutes FLUORO TIME: 0.0 MIN DOSE: 0.01 GYCM2 HISTORY The Patient is a 80 year-old female with a history of syncope INDICATIONS End of life of loop recorder. After appropriate informed consent the left chest was prepped and draped in usual sterile fashion. U nder 1% lidocaine local anesthesia a 0.5 inch incision was made at the location of the previous loop recorder implant site. The loop recorder was then removed without difficulty and the incision was cl osed with Steri-Strips. No acute complications. CONCLUSION Successful explantation of a loop recorder. Signed by : Laurie Panda, Electronically Approved : 01/21/2021 11:01:09
== END 2021-01-21 10:35 | disposition home or self-care (01) ==
LOC: CCL 07:21
PROVIDERS: ATTEND Internal Medicine Cardiovascular Disease
DX: Z45.09 Encounter for adjustment and management of other cardiac device (principal); R55 Syncope and collapse; K21.9 Gastro-esophageal reflux disease without esophagitis; M19.90 Unspecified osteoarthritis, unspecified site; F41.9 Anxiety disorder, unspecified; F32.9 Major depressive disorder, single episode, unspecified; I12.0 Hypertensive chronic kidney disease with stage 5 chronic kidney disease or end stage renal disease; N18.30 Chronic kidney disease, stage 3 unspecified; Z90.49 Acquired absence of other specified parts of digestive tract; Z98.890 Other specified postprocedural states; Z79.899 Other long term (current) drug therapy; Z88.1 Allergy status to other antibiotic agents; Z88.5 Allergy status to narcotic agent; Z88.8 Allergy status to other drugs, medicaments and biological substances
CPT/HCPCS: 33286; 99152; 99153; J1642; J2250; J3010; J3490

== ENCOUNTER 2021-07-08 16:25 | Emergency (ER) | payer MEDICARE ==
[~2021-07-08] VITALS: Ht 157.5 cm; Wt 52.3 kg
[2021-07-08 17:57] LABS: BASO # 0.1 x10^3/uL (0.0-0.2); BASO % 1 % (0-3); EOS # 0.4 x10^3/uL (0.0-0.7); EOS % 9 % (0-3); HEMATOCRIT 36.6 % (36.0-47.0); HEMOGLOBIN 12.1 g/dL (12.0-15.5); LYMPH # 1.7 x10^3/uL (1.0-4.8); LYMPH % 34 % (24-48); MEAN CORPUSCULAR HEMOGLOBIN 32 pg (25-35); MEAN CORPUSCULAR HGB CONC 33 g/dL (31-37); MEAN CORPUSCULAR VOLUME 98 fL (79-100); MONO # 0.4 x10^3/uL (0.0-1.1); MONO % 7 % (0-9); NEUT # 2.4 x10^3/uL (1.8-7.7); NEUT % 49 % (31-73); PLATELET COUNT 134 x10^3/uL (140-400); RED BLOOD COUNT 3.73 x10^6/uL (3.50-5.40)
[2021-07-08 18:09] LABS: CALCIUM 8.4 mg/dL (8.5-10.1); CREATININE 1.2 mg/dL (0.6-1.0); GFR 43.3; POTASSIUM 4.6 mmol/L (3.5-5.1)
--- NOTE | 2021-07-08 18:09 | RAD ---
EXAMINATION: Chest radiograph. VIEWS: Single AP view of the chest COMPARISON: 10/31/2018 INDICATION:81 years, Female, edema. FINDINGS: Left chest Port-A-Cath terminating in the upper SVC, unchanged. Normal cardiomediastinal silhouette. No focal consolidation. No pleural effusion or pneumothorax. No acute osseous process. IMPRESSION: No acute cardiopulmonary process. Electronically signed by: Stefano Bustamante DO (07/08/2021 6:06 PM) [facility]
[2021-07-08 18:15] LABS: ALBUMIN 2.9 g/dL (3.4-5.0); ALBUMIN/GLOBULIN RATIO 1.1 (1.0-1.7); MAGNESIUM 1.6 mg/dL (1.8-2.4); TOTAL BILIRUBIN 0.3 mg/dL (0.2-1.0); TOTAL PROTEIN 5.6 g/dL (6.4-8.2)
--- NOTE | 2021-07-08 19:36 | PHYS DOC ---
Past Medical History Past Medical History: Anxiety, Arrhythmia, Cancer, Hypertension, Renal Failure, Other Additional Past Medical Histor: KIDNEY DISEASE Past Surgical History: No Surgical History Additional Past Surgical Histo: ADNOIDS, WIPPLE, PORT TO L CHEST, ENDOLMPHATIC MASTOID SHUNT L EAR Smoking Status: Never Smoker Alcohol Use: None Drug Use: None General Adult EDM: Chief Complaint: UPPER EXTREMITY SWELLING HPI: HPI: Patient is a 81 year old female with a history of arrhythmias, pancreatic cancer with Whipple procedure couple years ago, renal failure, hypertension, who presents to the ED today to be evaluated for edema. Patient states she receives 2 L of IV fluids every Wednesday through the infusion clinic as an outpatient since her Whipple procedure couple years ago. She states since yesterday she has noted swelling to bilateral upper extremities and lower extremities. Denies any chest pain, shortness of breath. Denies any fever, coughing or congestion. Denies any upper or lower extremity swelling. Review of Systems: Review of Systems: Constitutional: Denies fever or chills. [] Eyes: Denies change in visual acuity. [] HENT: Denies nasal congestion or sore throat. [] Respiratory: Denies cough or shortness of breath. [] Cardiovascular: Denies chest pain or edema. [] GI: Denies abdominal pain, nausea, vomiting, bloody stools or diarrhea. [] : Denies dysuria. [] Musculoskeletal: Denies back pain or joint pain. [] Integument: Reports bilateral upper and lower extremity swelling Neurologic: Denies headache, focal weakness or sensory changes. [] Psychiatric: Denies depression or anxiety. [] Heart Score: C/O Chest Pain: N/A Risk Factors: Risk Factors: DM, Current or recent (<one month) smoker, HTN, HLP, family history of CAD, obesity. Risk Scores: Score 0 - 3: 2.5% MACE over next 6 weeks - Discharge Home Score 4 - 6: 20.3% MACE over next 6 weeks - Admit for Clinical Observation Score 7 - 10: 72.7% MACE over next 6 weeks - Early Invasive Strategies Allergies: Allergies: Allergies Coded Allergies Type Severity Reaction Last Updated Verified amiodarone Allergy Severe SOA, nausea, headache tremors,weakness 07/08/21 Yes amoxicillin Allergy Severe Hives 07/08/21 Yes adhesive Allergy Intermediate Rash 07/08/21 Yes chlorhexidine Allergy Intermediate rash, blisters 07/08/21 Yes Propafenone HCl Adverse Reaction Intermediate nausea, irregular heartbeat 07/08/21 Yes azithromycin Adverse Reaction Intermediate IRREGULAR HEART RYTHM 07/08/21 Yes codeine Adverse Reaction Intermediate Nausea and Vomiting 07/07/21 Yes Physical Exam: PE: Constitutional: Well developed, well nourished, no acute distress, non-toxic appearance. [] HENT: Normocephalic, atraumatic, bilateral external ears normal, oropharynx moist, no oral exudates, nose normal. [] Eyes: PERRLA, EOMI, conjunctiva normal, no discharge. [] Neck: Normal range of motion, no tenderness, supple, no stridor. [] Cardiovascular: Paced rhythm Lungs & Thorax: Bilateral breath sounds clear to auscultation [] Abdomen: Bowel sounds normal, soft, no tenderness, no masses, no pulsatile masses. [] Skin: Warm, dry, no erythema, no rash. [] Back: No tenderness, no CVA tenderness. [] Extremities: No tenderness, no cyanosis, no clubbing, ROM intact, +2 edema noted to bilateral upper extremities most of it is around bilateral biceps and forearms, no significant swelling on the hands, +1 right pedal edema. Left lower extremity with no significant swelling. Neurologic: Alert and oriented X 3, normal motor function, normal sensory function, no focal deficits noted. [] Psychologic: Affect normal, judgement normal, mood normal. [] Current Patient Data: Labs: Laboratory Tests Test 07/08/21 17:46 White Blood Count 5.0 x10^3/uL (4.0-11.0) Red Blood Count 3.73 x10^6/uL (3.50-5.40) Hemoglobin 12.1 g/dL (12.0-15.5) Hematocrit 36.6 % (36.0-47.0) Mean Corpuscular Volume 98 fL (79-100) Mean Corpuscular Hemoglobin 32 pg (25-35) Mean Corpuscular Hemoglobin Concent 33 g/dL (31-37) Red Cell Distribution Width 13.0 % (11.5-14.5) Platelet Count 134 x10^3/uL (140-400) L Neutrophils (%) (Auto) 49 % (31-73) Lymphocytes (%) (Auto) 34 % (24-48) Monocytes (%) (Auto) 7 % (0-9) Eosinophils (%) (Auto) 9 % (0-3) H Basophils (%) (Auto) 1 % (0-3) Neutrophils # (Auto) 2.4 x10^3/uL (1.8-7.7) Lymphocytes # (Auto) 1.7 x10^3/uL (1.0-4.8) Monocytes # (Auto) 0.4 x10^3/uL (0.0-1.1) Eosinophils # (Auto) 0.4 x10^3/uL (0.0-0.7) Basophils # (Auto) 0.1 x10^3/uL (0.0-0.2) Sodium Level 141 mmol/L (136-145) Potassium Level 4.6 mmol/L (3.5-5.1) Chloride Level 110 mmol/L (98-107) H Carbon Dioxide Level 22 mmol/L (21-32) Anion Gap 9 (6-14) Blood Urea Nitrogen 9 mg/dL (7-20) Creatinine 1.2 mg/dL (0.6-1.0) H Estimated GFR (Cockcroft-Gault) 43.3 BUN/Creatinine Ratio 8 (6-20) Glucose Level 95 mg/dL (70-99) Calcium Level 8.4 mg/dL (8.5-10.1) L Magnesium Level 1.6 mg/dL (1.8-2.4) L Total Bilirubin 0.3 mg/dL (0.2-1.0) Aspartate Amino Transferase (AST) 114 U/L (15-37) H Alanine Aminotransferase (ALT) 152 U/L (14-59) H Alkaline Phosphatase 102 U/L (46-116) Troponin I High Sensitivity 10 ng/L (4-50) KN-Nxa-X-Type Natriuretic Peptide 594 pg/mL (0-449) H Total Protein 5.6 g/dL (6.4-8.2) L Albumin 2.9 g/dL (3.4-5.0) L Albumin/Globulin Ratio 1.1 (1.0-1.7) Laboratory Tests 07/08/21 17:46 Laboratory Tests 07/08/21 17:46 Vital Signs: Vital Signs Date Time Temp Pulse Resp B/P (MAP) Pulse Ox O2 Delivery O2 Flow Rate FiO2 07/08/21 17:00 98.7 61 16 151/69 (96) 97 98.7 [address]: E[address] Ortiz sinus bradycardia heart rate 47 no STEMI [] Radiology/Procedures: Radiology/Procedures: []PROCEDURE: PORTABLE CHEST 1V EXAMINATION: Chest radiograph. VIEWS: Single AP view of the chest COMPARISON: 10/31/2018 INDICATION:81 years, Female, edema. FINDINGS: Left chest Port-A-Cath terminating in the upper SVC, unchanged. Normal cardiomediastinal silhouette. No focal consolidation. No pleural effusion or pneumothorax. No acute osseous process. IMPRESSION: No acute cardiopulmonary process. Electronically signed by: Mesfin Bustamante DO (07/08/2021 6:06 PM) [facility] DICTATED and SIGNED BY: MESFIN BUSTAMANTE DO DATE: 07/08/21 180 Course & Med Decision Making: Course & Med Decision Making Pertinent Labs and Imaging studies reviewed. (See chart for details) This is a 81-year-old female patient presenting to the ED today with bilateral upper extremity swelling and lower extremity swelling that began yesterday after receiving 2 L of IV fluids through the infusion clinic. She gets IV fluids every Wednesday. Patient has no chest pain, shortness of breath. EKG is negative for STEMI, chest x-ray is negative, CBC with no acute findings, CMP with no acute findings, high-sensitivity troponin is negative, BNP 594 which is actually lower than patient's numbers. Patient has a follow-up appointment tomorrow with Dr. James. She was discharged home. Instructed to elevate bilateral upper and lower extremities. Compression stockings also recommended. Dragon Disclaimer: Dragon Disclaimer: This electronic medical record was generated, in whole or in part, using a voice recognition dictation system. Departure Departure Impression: Primary Impression: Edema Qualified Codes: R60.9 - Edema, unspecified Disposition: HOME / SELF CARE / HOMELESS Condition: STABLE Referrals: HARMEET FULLER MD (PCP) Follow-up as soon as possible LAURIE JAMES MD follow up tomorrow Patient Instructions: Edema, [id number] Additional Instructions: You were evaluated in the emergency room, your cardiac as well as kidney function work-up is negative for any acute findings. Please follow-up with your primary care doctor in 1 to 2 weeks. Come back to the ED at any point symptoms worsen. Try to elevate bilateral upper and lower extremities KAREN MAYO APRN Jul 08, 2021 19:36
[2021-07-08 19:46] VITALS: BP 132/63
[2021-07-08] MEDS ORDERED: HEPARIN PF 500 UNIT/5 ML DISP.SYRIN. IVP ONE (20:30)
--- NOTE | 2021-07-09 00:45 | EKG ---
[facility] [address] [place] [address] Test Date: 2021-07-08 Test Time: 17:35:51 Pat Name: AMALIA CANALES Department: Room: Gender: F [employer]: : 1940 Requested By: KAREN MAYO Order Number: [id number] Reading MD: Shahab Daniel Measurements Intervals Hawkins Rate: 47 P: 40 AR: 170 QRS: -16 QRSD: 70 T: 32 QT: 450 QTc: 398 Interpretive Statements SINUS BRADYCARDIA LEFTWARD AXIS QRS(T) CONTOUR ABNORMALITY CONSISTENT WITH POSSIBLE OLD ANTEROSEPTAL INFARCT Electronically Signed On 07-09-2021 16:27:21 CDT by Shahab Daniel
== END 2021-07-08 20:41 | disposition home or self-care (01) ==
LOC: ER 16:25
DX: R60.0 Localized edema (principal); I12.9 Hypertensive chronic kidney disease with stage 1 through stage 4 chronic kidney disease, or unspecified chronic kidney disease; N18.9 Chronic kidney disease, unspecified; Z88.1 Allergy status to other antibiotic agents; Z88.5 Allergy status to narcotic agent; Z88.8 Allergy status to other drugs, medicaments and biological substances
CPT/HCPCS: 36415; 71045; 80053; 83735; 83880; 84484; 85025; 93005; 96374; 99285; J1642

== ENCOUNTER → 2021-07-16 | Outpatient (CLI) | payer MEDICARE ==
[2021-07-08 19:46] VITALS: BP 132/63
--- NOTE | 2021-07-16 17:00 | RAD ---
MR#: [id number] Date of Study: 07/16/2021 Ordering Physician: LAURIE PANDA, Referring Physician: LAURIE PANDA, Tech: Guy Barlow MBA, RDMS, RVT, RDCS, RTR APPROVED REPORT Bilateral Upper Extremity Venous Study for DVT. Patient Location: OUT-PATIENT Indications Upper Extremity Edema: Bilateral Vein Imaging (Right) IJV (R): Spontaneous SCV (R): Spontaneous Axillary (R): Compressible Brachial (R): Compressible Basilic (R): Compressible Cephalic (R): Compressible Radial (R): Compressible Ulnar (R): Compressible Vein Imaging (Left) IJV (L): Spontaneous SCV (L): Spontaneous Axillary (L): Compressible Brachial (L): Compressible Basilic (L): Compressible Cephalic (L): Compressible Radial (L): Compressible Ulnar (L): Compressible Findings Grayscale images the bilateral upper extremity deep veins demonstrate no obvious evidence of thrombus . Bilateral subclavian, cephalic, brachial, radial and ulnar veins appear to be compressible. Bilat eral basilic veins were not well visualized. Bilateral internal jugular veins do not demonstrate any evidence of thrombus. In the area of the left upper extremity swelling there is subcutaneous edema but no obvious evidence of thrombus noted in the deep veins. Critical Notification Critical Value: No <Conclusion> 1. Negative for DVT in the bilateral upper extremities Signed by : Laurie Panda, Electronically Approved : 07/16/2021 17:00:20
== END ==
LOC: US 15:02
PROVIDERS: ATTEND Internal Medicine Cardiovascular Disease
DX: M79.89 Other specified soft tissue disorders (principal)
CPT/HCPCS: 93970